=== PATIENT | female | born 1990 | race Caucasian/White ===

== ENCOUNTER 2016-10-11 16:24 | Emergency (ER) | payer SELFPAY ==
[2016-10-11 18:34] VITALS: BP 155/78
--- NOTE | 2016-10-13 14:45 | ED ---
Andreas Kemp Billy, scribed for David Damon MD on 10/11/16 at 1710 . Substance Abuse/Use - HPI Summary HPI Summary: Patient is a 26 year-old female coming to [facility] after she was found by law enforcement, unresponsive, in her car. She states that she overdosed on "40 units" of heroin, which is the same amount as she normally uses, and from the same supplier. She reports that she took the dose at approximately 1530. She states that she injected the heroin and pulled out to drive when she had a sudden LOC. Her symptoms improved with 1x dose of nasal narcan (2mg). She reports recent night sweats and weight loss. - History Of Current Complaint Chief Complaint: EDSubstanceAbuse Stated Complaint: 2208 Time Seen by Provider: 10/11/16 16:54 Hx Obtained From: Patient Ingestion History: Type/Name Of Drug, Amount Ingested - "40 units", Approximate Time Of Ingestion - 1530 Overdose Characteristics: IV Timing Of Abuse: Intermittent Severity Initially: Moderate Severity Currently: Mild Aggravating Factor(s): Nothing Alleviating Factor(s): Other - nasal narcan 2mg Associated Signs And Symptoms: Intentional Ingestion, Other: - weight loss, "night sweats" - Allergies/Home Medications Allergies/Adverse Reactions: Allergies Allergy/AdvReac Type Severity Reaction Status Date / Time No Known Allergies Allergy Verified 03/27/14 13:11 PMH/Surg Hx/FS Hx/Imm Hx Cardiovascular History: Denies: Hx Myocardial Infarction Respiratory History: Denies: Hx Asthma Infectious Disease History: No Infectious Disease History: Denies: Traveled Outside the [place] in Last 30 Days - Family History Known Family History: Negative: Cardiac Disease, Hypertension, Diabetes Family History: pt denies a significant FHx - Social History Alcohol Use: None Hx Substance Use: Yes Substance Use Type: Reports: Heroin Substance Use Comment - Amount & Last Used: 09/30/16 heroin and marijuana Hx Tobacco Use: Yes Smoking Status (MU): Smoker, Current Status Unknown Review of Systems Positive: Other - "night sweats" and weight loss. Negative: Fever Neurological: Other - heroin OD, resolved with narcan All Other Systems Reviewed And Are Negative: Yes Physical Exam - Summary Physical Exam Summary: GENERAL: Awake, alert, oriented, no acute distress, very pleasant HEENT: Head is normocephalic, atraumatic, anicteric sclera, clear conjunctiva, mucous membranes moist, no erythema, no discharge, no lesions, neck is supple, trachea is midline, no JVD. Pupils 3mm. CARDIAC: Regular rate and rhythm, S1, S2, no rub, no murmur, no gallop, 2+ radial and pedal pulses bilaterally RESPIRATORY: Clear to auscultation bilaterally with no rales, rhonchi, or wheezes, non-tender ABDOMEN: Bowel sounds positive, no bruit, soft, non-tender, no CVA tenderness EXTREMITIES: No edema, warm, dry, moving all extremities in a grossly normal manner NEUROLOGICAL: Mood is appropriate, moving all extremities in a grossly normal manner Triage Information Reviewed: Yes Vital Signs On Initial Exam: Initial Vitals Temp Pulse Resp BP Pulse Ox 98.1 F 97 16 125/86 97 10/11/16 16:45 10/11/16 16:45 10/11/16 16:45 10/11/16 16:45 10/11/16 16:45 Vital Signs Reviewed: Yes - [place] Coma Scale Coma Scale Total: 15 Diagnostics - Vital Signs Vital Signs Temp Pulse Resp BP Pulse Ox 10/11/16 16:45 98.1 F 97 16 125/86 97 - Laboratory Lab Statement: Any lab studies that have been ordered have been reviewed, and results considered in the medical decision making process. - EKG 1626 EKG Interpretation: NSR 90 bpm, no acute ischemia Re-Evaluation - Re-Evaluation First Eval Re-Evaluation Time: 18:25 Comment: Breathing spontaneously, acting normally. Course/Dx - Course Assessment/Plan: 26 year-old female coming to the ED with law enforcement after she OD on heroin. She was found in her vehicle unresponsive, but her symptoms improved with 2mg nasal narcan. She was observed in the ED for two hours with no return of her symptoms. She was discharged and instructed not to drive until cleared by her physician. - Diagnoses Provider Diagnoses: Heroin overdose Discharge - Discharge Plan Condition: Stable Disposition: HOME Patient Education Materials: Narcotic Abuse (ED) Referrals: [facility] [place] PHYSICIAN REFERRAL [Outside] - 2 Days Additional Instructions: DO NOT DRIVE UNTIL CLEARED BY A DOCTOR. The documentation as recorded by the Andreas luciano Billy accurately reflects the service I personally performed and the decisions made by , David Damon MD.
== END 2016-10-11 18:41 | disposition home or self-care (01) ==
LOC: ED 16:24
DX: T40.1X1A Poisoning by heroin, accidental (unintentional), initial encounter (principal); Y92.9 Unspecified place or not applicable; F17.200 Nicotine dependence, unspecified, uncomplicated
CPT/HCPCS: 93005; 99283